=== PATIENT | male | born 1960 | race Caucasian/White ===

== ENCOUNTER 2017-11-10 00:18 | Observation (INO) | payer OTHER ==
[~2017-11-10] VITALS: Ht 172.7 cm; Wt 85.3 kg
[~2017-11-10 00:18] MED LIST: NOHOMEMEDICATIONS; PERCOCET 5-3251 EACH PO
[2017-11-10 00:26] VITALS: BP 139/82
[2017-11-10 00:38] LABS: ABSOLUTE BASOPHILS 0.1 thou/uL (0.0-0.2); ABSOLUTE EOSINOPHILS 0.2 thou/uL (0.0-0.7); ABSOLUTE LYMPHOCYTES 2.9 thou/uL (0.8-5.3); ABSOLUTE MONOCYTES 0.8 thou/uL (0.0-1.2); ABSOLUTE NEUTROPHILS 4.7 thou/uL (1.6-8.1); BASOPHILS 0.7 %; EOSINOPHILS 2.7 %; HEMATOCRIT 40.6 % (42.0-52.0); HEMOGLOBIN 13.9 gm/dL (14.0-18.0); LYMPHOCYTES 33.6 %; MCHC 34.3 g/dL (28.0-37.0); MCV 87.3 fL (80.0-100.0); MONOCYTES 9.3 %; MPV 8.7 fl. (7.2-11.1); NUCLEATED RBCS 0 /100WBC; PLATELET COUNT* 191 thou/uL (150-400); POLYS 53.7 %; RBC 4.65 mil/uL (4.50-6.00); RDW-CV 13.3 % (10.5-14.5); WBC 8.7 thou/uL (4.0-11.0)
[2017-11-10 01:23] LABS: ANION GAP 7 mmol/L (7-16); BUN 17 mg/dL (7-18); CALCIUM 8.6 mg/dL (8.5-10.1); CHLORIDE 102 mmol/L (98-107); CO2 27 mmol/L (21-32); GLUCOSE 104 mg/dL (70-99); POTASSIUM 3.2 mmol/L (3.5-5.1); SODIUM 136 mmol/L (136-145)
[2017-11-10 01:25] LABS: INR 1.1; PROTIME 10.3 Seconds (9.20-11.50)
[2017-11-10 01:30] LABS: ALBUMIN 3.7 g/dL (3.4-5.0); ALKALINE PHOSPHATASE 69 U/L (46-116); SGOT 20 U/L (15-37); SGPT 29 U/L (30-65); TOTAL BILIRUBIN 0.7 mg/dL (<0.1-1.0); TOTAL PROTEIN 6.8 g/dL (6.4-8.2); TROPONIN-I LEVEL <0.06 ng/mL (<0.06)
[2017-11-10 03:38] VITALS: BP 110/71
--- NOTE | 2017-11-10 05:29 | NUR ---
ASSUMED CARE OF PATIENT AT 0345 THE PATIENT REMAINS SR ON THE MONITOR O2 SAT MAINTAINED ON RA CONTINUES TO BE UP AD SYEDA ED INTERVENTIONS EFFECTIVE FOR SX MANAGEMENT PAIN IN JAW SAFETY INTERVENTIONS INITIATED BED LOWERED WHEELS LOCKED CALL LIGHT IN REACH SIDE RAILS UP X2 REPORT TO BE GIVEN TO ONCOMING RN
[2017-11-10 08:00] VITALS: BP 114/79
[2017-11-10] MEDS ORDERED: FLAGYL500 MG PO (10:18)
[2017-11-10] MEDS ORDERED: CYCLOBENZAPRINE5 MG PO (10:18)
[2017-11-10 11:29] VITALS: BP 114/79
--- NOTE | 2017-11-10 11:35 | EKG ---
[place] [address] ELECTROCARDIOGRAM REPORT Name: MICHELE TEE [address] [id number] Admission: 11/10/17 Attend Phys: Mitch Pham MD Discharge: Date of : 64 Report #: [id number] THIS REPORT FOR: //name// [facility] ED Test Date: 2017-11-10 Test Time: 00:45:39 Pat Name: MICHELE TEE Department: Room: Gender: Distribution Tech: LARA Xavier : 1960 Requested By: Maria Antonia Bishop Order Number: [id number] MD: Eugenio Mejia Measurements Intervals [place] Rate: 74 P: 49 [place]: 186 QRS: -13 QRSD: 114 T: 31 QT: 385 QTc: 428 Interpretive Statements Sinus rhythm Borderline intraventricular conduction delay RSR' in V1 or V2, right VCD or RVH No previous ECG available for comparison Electronically Signed On 11-10-2017 11:34:55 CDT by Eugenio Mejia [email or web address] <ELECTRONICALLY SIGNED> By: Eugenio Mejia MD, [facility] 11/10/17 1134 0045 0045 Eugenio Mejia MD, [facility] /EPI
--- NOTE | 2017-11-10 12:04 | NUR ---
VSS, ASSSUMED CARE IN THE AM, ASSESSMENT PERFORMED AND CHARTED, FALL PRECAUTIONS IN PLACE AND CALL LIGHT IN RECAH, PT IS A&O4 AND UP AD SYEDA PT HAS CRAMPING IN HIS JAW, BUT DENIES ANY PAIN, PT IS SR ON THE MONITOR HIS GOAL IS TO D/C TO HOME ON DAY OF CARE, AT THIS TIME PT HAS RECIEVED D/C INSTRUCTIONS FILLED OUT D/C MEDS PROVITED MEDICATIONS INFORMATIONS AND SCRIPTS, PT DENIES ANY QUESTIONS OR CONCERNS AT TIME OF D/C. PT WAS WALKED OUT TO CAR WITH STAFF AND .
--- NOTE | 2017-11-10 12:33 | NUR ---
RE: TETANUS IMMUNE GLOBULIN. OVERNIGHT DOSE ORDERED BY E.D. PHYSICIAN. IN PROCESS OF OBTAINING DOSE, DR MAN STATED NOT NECESSARY TO DISPENSE TO THIS PATIENT AT THIS TIME. E.D. DOSE CREDITED NOT GIVEN. THANK YOU.
--- NOTE | 2017-11-11 09:00 | CON ---
[address] [address] CONSULTATION Name: RAFAL TEE Room: [address] [place]#: [id number] Admission: 11/10/17 Attend Phys: Mitch Pham MD Discharge: 11/10/17 Date of : 64 Report #: [id number] THIS REPORT FOR: //name// CC: Nemesio Pham DATE OF SERVICE: 11/10/2017 INFECTIOUS DISEASE CONSULTATION REASON FOR EVALUATION: Trismus, possible tetanus. HISTORY OF PRESENT ILLNESS: Chart reviewed, patient examined. This is a 57-year-old gentleman without significant medical history who apparently has been working extensively outside with more wires, has multiple abrasions, puncture sites involving the limbs. He developed over the course of the last 3 days, unilateral right-sided, jaw-related spasms as well as some numbness, had seemingly worsened over the course of the last 24 hours, presented to the Emergency Room with concerns about possible testis. He has not had fevers. He really has no other localizing signs or symptoms. He generally feels okay. Appetite has been fine. No breathing difficulties. No swallowing difficulties. Denies any pulmonary or gastrointestinal related complaints. He was given a tetanus shot, given a dose of metronidazole. This morning, he feels somewhat better. He does have some residual intermittent spasms and the numbness, kind of the posterior inferior to the mandible. ALLERGIES: None known. MEDICATIONS: Diazepam. PAST MEDICAL HISTORY: Previous history of right elbow bursitis, ACL injury of right knee, appendectomy, tonsillectomy. SOCIAL HISTORY: Smokes cigarettes, occasional ethanol, no illicit drug use. FAMILY HISTORY: Noncontributory. REVIEW OF SYSTEMS: As above. PHYSICAL EXAMINATION: GENERAL: He is alert, cooperative. He is really in no distress, appears well nourished. VITAL SIGNS: Temperature 98.1, pulse 64, respirations 18, blood pressure 114/79. SKIN: Warm, dry, no rashes. HEENT: Unremarkable. He is able to open [place] [address] CONSULTATION Name: NAYRAFAL Diony Room: [address]#: [id number] Admission: 11/10/17 Attend Phys: Mitch Pham MD Discharge: 11/10/17 Date of : 64 Report #: [id number] difficulty, appreciated trismus per se. He notes apparently it is intermittent at least at this point. LUNGS: Breathing is nonlabored. Clear breath sounds. HEART: Regular. ABDOMEN: Soft, nontender, nondistended. EXTREMITIES: No cyanosis. GENITOURINARY AND RECTAL: Deferred. LABORATORY DATA: Chest x-ray, no acute process. Electrolytes: Sodium 136, potassium 3.2, chloride 102, bicarbonate 27, anion gap of 7, BUN and creatinine 17 and 1.0, glucose of 104. LFTs unremarkable. Albumin 3.7, total protein 6.8. PT of 10.0, INR 1.1. CBC: White count of 8.7, H and H 13.9 and 40.6, platelets of 191. ASSESSMENT AND PLAN: Right mandibular muscle spasms of unclear etiology. There are cases of localized tetanus, although this seems unlikely. There is no trauma to the site or exposure, perhaps has some partial immunity. He was given a tetanus shot. I do not know whether there is any role for antibiotics at this point. There was discussion about giving him tetanus immunoglobulin; however, it is difficult to obtain. We will agree with the diazepam. He is going to be under the care of his spouse. I think it is reasonable to discharge him. We will see him in followup in 1 week. <ELECTRONICALLY SIGNED> By: Rafal Coffey MD 11/11/17 0900 1142 [id number] Coffey MD /nt
== END 2017-11-10 12:23 | disposition home or self-care (01) ==
LOC: M.ERS 00:18 → M.2W 02:48 → M.TBA-ER 02:48 → M.2W 02:48
PROVIDERS: Emergency Medicine; ADMIT Internal Medicine
DX: R25.2 Cramp and spasm (principal); R00.2 Palpitations; Z90.89 Acquired absence of other organs; F17.210 Nicotine dependence, cigarettes, uncomplicated; Z72.89 Other problems related to lifestyle; Z98.890 Other specified postprocedural states; Z23 Encounter for immunization